=== PATIENT | female | born 1965 | race Caucasian/White ===

== ENCOUNTER 2021-01-08 12:51 | Emergency (ER) | payer OTHER ==
[2021-01-08] MEDS ORDERED: Dexamethasone 4 MG TAB ONE (13:37)
[2021-01-08] MEDS ORDERED: Dexamethasone 10 MG/ML VIAL ONE (13:38)
== END 2021-01-08 13:46 | disposition home or self-care (01) ==
LOC: ERS 12:51
DX: K04.7 Periapical abscess without sinus (principal); K02.9 Dental caries, unspecified; K21.9 Gastro-esophageal reflux disease without esophagitis; Z86.718 Personal history of other venous thrombosis and embolism
CPT/HCPCS: 99282; J1100; J8540